=== PATIENT | female | born 1975 | race Caucasian/White ===

== ENCOUNTER 2020-06-14 06:51 | Emergency (ER) | payer OTHER ==
[~2020-06-14 06:51] MED LIST: BISOPROLOL FUMAR5 MG PO; CELEXA20 MG PO; FEOSOL325 MG PO; PRILOSEC20 MG PO; SINGULAIR10 MG PO; XOPENEX (00.63 MG/3 INH; XYREM500 MG/1 M PO
[2020-06-14 08:37] LABS: BASOPHIL 0.6 % (0-2); EOSINOPHIL 1.2 % (0-5); HCT 36.5 % (37.0-47.0); HGB 11.2 g/dl (12.5-16.0); LYMPHOCYTE 29.2 % (15-48); MCH 28.1 pg (25.0-31.0); MCHC 30.7 g/dL (32.0-36.0); MCV 91.5 fL (78.0-100.0); MONOCYTE 6.8 % (0-12); MPV 8.4 fL (6.0-9.5); NEUTROPHIL 61.8 % (41-80); NRBC 0; PLT 306 K/uL (150-400); RBC 3.99 M/uL (4.20-5.40); RDW 13.9 % (11.5-14.0); WBC 7.8 K/uL (4.0-10.5)
[2020-06-14 08:57] LABS: ALBUMIN 3.6 g/dL (3.4-5.0); BILIRUBIN - TOTAL 0.3 mg/dL (0.2-1.0); CREATININE 0.64 mg/dL (0.51-0.95); GLOBULIN (CALCULATION) 3.3 g/dL; POTASSIUM 3.9 mmol/L (3.5-5.1); TOTAL PROTEIN 6.9 g/dL (6.4-8.2)
[2020-06-14] MEDS ORDERED: NAPROXEN500 MG PO (09:43)
== END 2020-06-14 10:20 | disposition home or self-care (01) ==
LOC: FER 06:51
PROVIDERS: Emergency Medicine
DX: M94.0 Chondrocostal junction syndrome [Tietze] (principal); Z79.899 Other long term (current) drug therapy
CPT/HCPCS: 36415; 74022; 80053; 84484; 85025

== ENCOUNTER → 2020-12-28 | Day surgery (SDC) | payer OTHER ==
[~2020-12-28] VITALS: Ht 160 cm; Wt 141.7 kg
[~2020-12-28] MED LIST changes: +CARAFATE1 G1 PO; +DRIZALMA SPRINK40 MG PO; +INDERAL LA160 MG PO; +LYRICA 50MG CAP50 MG PO; +NAPROXEN500 MG PO; +PANTOPRAZOLE SO40 MG PO; +PROVIGIL200 MG PO
[2020-12-28 09:10] LABS: HCG (URINE) SCREEN NEGATIVE (NEGATIVE)
== END | disposition home or self-care (01) ==
LOC: FAS 08:44
PROVIDERS: Surgery
DX: K31.9 Disease of stomach and duodenum, unspecified (principal); K29.70 Gastritis, unspecified, without bleeding; R68.81 Early satiety; K59.09 Other constipation; D25.1 Intramural leiomyoma of uterus; D25.2 Subserosal leiomyoma of uterus; J45.909 Unspecified asthma, uncomplicated; R53.82 Chronic fatigue, unspecified; F32.A Depression, unspecified; I10 Essential (primary) hypertension; N20.0 Calculus of kidney; G43.909 Migraine, unspecified, not intractable, without status migrainosus; G47.419 Narcolepsy without cataplexy; G47.30 Sleep apnea, unspecified; E66.01 Morbid (severe) obesity due to excess calories; Z68.43 Body mass index [BMI] 50.0-59.9, adult; Z79.899 Other long term (current) drug therapy; Z77.22 Contact with and (suspected) exposure to environmental tobacco smoke (acute) (chronic)
CPT/HCPCS: 84703; J2250; J2704; J7120